=== PATIENT | female | born 1955 | race Caucasian/White ===

== ENCOUNTER → 2021-01-12 | Outpatient (CLI) | payer MEDICARE, BC ==
[2021-01-12 13:24] LABS: BASO # 0.1 (0.0-0.2); BASO % 0.6 % (0.0-2.0); EOS # 0.1 (0.0-0.7); EOS % 1.5 % (0-4.0); GRAN # 5.3 (1.4-6.5); GRAN % 65.2 % (42.2-75.2); HEMATOCRIT 44.7 % (37.0-47.0); HEMOGLOBIN 14.7 g/dl (12.5-16.0); LYMPH # 1.8 (1.2-3.4); LYMPH % 22.3 % (20.0-51.0); MEAN CELL VOLUME 102 fl (80.0-100.0); MEAN CORPUSCULAR HEMOGLOBIN 34 pg (27.0-31.0); MEAN CORPUSCULAR HGB CONC 33 g/dl (33.0-37.0); MEAN PLATELET VOLUME 10.1 fl (7.4-10.4); MONO # 0.8 (0.1-0.6); PLATELET COUNT 201 K/mm3 (130-400); RED BLOOD COUNT 4.39 M/mm3 (4.10-5.30); REDCELL DISTRIBUTION WIDTH-CV 14.6 % (11.5-14.5)
== END ==
LOC: COL.LAB 12:45
PROVIDERS: Physician Assistant
DX: M79.672 Pain in left foot (principal)

== ENCOUNTER 2022-05-25 12:14 | Inpatient (IN) | payer OTHER, MEDICARE ==
[2022-05-25] VITALS (155 sets, daily range): O2SAT 83–100
[~2022-05-25 12:14] MED LIST: ALDACTONE 25MG25 M1 PO; ATIVAN 0.50.5 MG/TAB PO; CORDARONE200 MG/TAB PO; ELIQUIS 5MG PO; ENTRESTO 24 MG1 EACH PO; LASIX 20MG TABL20 MG PO; NP THYROID90 MG PO; PACERONE400 MG PO; PAXIL 20MG20 MG PO; PRIL40 PO; TOPROL XL 25MG25 MG PO
--- NOTE | 2022-05-25 13:59 | NUR ---
REPORT GIVEN TO DANIELLE NEGRO RN RM [id number].
--- NOTE | 2022-05-25 14:09 | NUR ---
[facility] ACCEPT[facility]- [facility] REP TO FOLLOW UP WITH PT IN [facility].
--- NOTE | 2022-05-25 15:11 | NUR ---
1200-PT ARRIVED TO ICU AND STARTED THE TRANSFER PROCEWS TO . PT LEFT UNIT WITH SHANK TURNER/NURSE HELICOPTER TEAM.
--- NOTE | 2022-05-25 15:38 | NUR ---
REPORT GIVEN TO SHRADDHA ABSORPTION PLANT OPERATOR HELPER. PT TO TRANSFER TO ROOM [facility]. [phone]. PT TRANSPORTED BY [facility] TEAM. PT BROTHER LEFT UNIT WITH ALL PT BELONGINGS.
--- NOTE | 2022-05-25 15:45 | NUR ---
DURING MED REC PT UNABLE TO RECOLLECT WHEN ALL HOME MEDS HAVE BEEN TAKEN DUE TO BEING IN THE HOSPITAL. ON REVIEW THE PT STATED THAT NOTHING CHANGED FROM HER ADMIT.
[2022-06-20] MEDS ORDERED: PACERONE200 MG PO (21:34)
[2022-06-20] MEDS ORDERED: INSPRA25 MG PO (21:35)
[2022-06-20] MEDS ORDERED: JARDIANCE10 PO (21:36)
[2022-06-20] MEDS ORDERED: ROXICODONE 55 MG/TAB PO (21:38)
[2022-06-20] MEDS ORDERED: ARMOUR THYROID90 MG PO (21:40)
[2022-06-20] MEDS ORDERED: VANCO 1.51.5 GM/250 IV (21:41)
== END 2022-05-25 15:46 | disposition short-term general hospital (02) | DRG 309 ==
LOC: ICU 12:14
PROVIDERS: ADMIT Internal Medicine
DX: I47.20 Ventricular tachycardia, unspecified (principal); I42.9 Cardiomyopathy, unspecified; I50.22 Chronic systolic (congestive) heart failure; I48.0 Paroxysmal atrial fibrillation; I08.1 Rheumatic disorders of both mitral and tricuspid valves; F41.9 Anxiety disorder, unspecified; E03.9 Hypothyroidism, unspecified; I46.9 Cardiac arrest, cause unspecified; K21.9 Gastro-esophageal reflux disease without esophagitis; F32.A Depression, unspecified; I95.9 Hypotension, unspecified; K59.00 Constipation, unspecified; Z85.3 Personal history of malignant neoplasm of breast; Z90.711 Acquired absence of uterus with remaining cervical stump; Z86.16 Personal history of COVID-19; Z79.01 Long term (current) use of anticoagulants; Z87.891 Personal history of nicotine dependence; Z90.89 Acquired absence of other organs